=== PATIENT | male | born 1945 | race Caucasian/White ===

== ENCOUNTER 2016-05-16 19:02 | Emergency (ER) | payer OTHER | END 2016-05-16 23:15 | disposition home or self-care (01) | LOC: ER 19:02 | DX: S16.1XXA Strain of muscle, fascia and tendon at neck level, initial encounter (principal); S39.012A Strain of muscle, fascia and tendon of lower back, initial encounter; K21.9 Gastro-esophageal reflux disease without esophagitis; I10 Essential (primary) hypertension; E78.5 Hyperlipidemia, unspecified; F32.9 Major depressive disorder, single episode, unspecified; F41.9 Anxiety disorder, unspecified; V43.52XA Car driver injured in collision with other type car in traffic accident, initial encounter; Z79.899 Other long term (current) drug therapy ==

== ENCOUNTER 2016-06-15 21:47 | Emergency (ER) | payer OTHER | END 2016-06-16 02:20 | disposition home or self-care (01) | LOC: ER 21:47 | DX: M54.42 Lumbago with sciatica, left side (principal); F32.9 Major depressive disorder, single episode, unspecified; F41.9 Anxiety disorder, unspecified; K21.9 Gastro-esophageal reflux disease without esophagitis; I10 Essential (primary) hypertension; Z79.899 Other long term (current) drug therapy | CPT/HCPCS: 96372 ==